=== PATIENT | male | born 1940 | race Caucasian/White ===

== ENCOUNTER → 2018-04-03 | Outpatient (CLI) | payer OTHER ==
[~2018-04-03] MED LIST: ACETAMINOPHEN325 M1 PO; AMITIZA 24 MCG24 MC1 PO; CRESTOR20 MG PO; DILTIAZEM 24HR180 MG PO; MELOXICAM7.5 MG PO; MICARDIS HCT 81 EAC1 PO; OMEPRAZOLE 20 M20 MG PO
== END ==
LOC: CAT 11:31
DX: I25.10 Atherosclerotic heart disease of native coronary artery without angina pectoris (principal); M47.814 Spondylosis without myelopathy or radiculopathy, thoracic region

== ENCOUNTER 2019-03-05 09:29 | Outpatient (CLI) | payer OTHER ==
[~2019-03-05] VITALS: Ht 187 cm; Wt 103.9 kg
[2019-03-05 10:36] LABS: CALCIUM 10.1 mg/dL (8.5-10.1); CREATININE 1.5 mg/dL (0.7-1.3); POTASSIUM 4.1 mmol/L (3.5-5.1)
[2019-03-05 10:44] VITALS: BP 150/50
[2019-03-05] MEDS ORDERED: ALLOPURINOL 10100 M3 PO (11:11)
[2019-03-05] MEDS ORDERED: ASA81BEC PO (11:12)
[2019-03-05] MEDS ORDERED: MITIGARE0.6 MG PO (11:12)
[2019-03-05] MEDS ORDERED: AMITIZA8 MCG PO (11:13)
[2019-03-05] MEDS ORDERED: MAG-OXIDE200 MG PO (11:15)
[2019-03-05] MEDS ORDERED: CENTRUM ADULTS1 EACH PO (11:15)
[2019-03-05] MEDS ORDERED: BYSTOLIC10 MG PO (11:16)
[2019-03-05] MEDS ORDERED: LIVALO2 MG PO (11:17)
[2019-03-05] MEDS ORDERED: PRADAXA150 MG PO (11:18)
[2019-03-05] MEDS ORDERED: DEMADEX20 MG PO (11:18)
[2019-03-05 12:21] LABS: HEMATOCRIT 46.4 % (42.0-52.0); HEMOGLOBIN 15.4 gm/dL (14.0-18.0); MCH 30.3 pg (26.0-34.0); MCHC 33.3 g/dL (28.0-37.0); MCV 91.2 fL (80.0-100.0); RBC 5.08 mil/uL (4.50-6.00); RDW 15.1 % (10.5-14.5); WBC 5.8 thou/uL (4.0-11.0)
--- NOTE | 2019-03-05 17:02 | CATHLAB ---
[facility] [employer] [address] INVASIVE PROCEDURE REPORT Name: KELLY ABDUL Room #: 204-P [facility].R.#: [id number] Admission: 03/05/19 Attend Phys: Tolu Pike, Discharge: Date of : 42 Report #: [id number] THIS REPORT FOR: //name// APPROVED REPORT Study performed: 03/05/2019 10:19:10 Patient Details Patient Status: Out-Patient Room #: The patient is a 78 year-old male Event Personnel Tolu Pike Marine Photographer, Dexter Camarena RN, Maegan Conner RTR Donna Briscoe David Monitor Procedures Performed Right and Left Heart Cath w/or w/o Coronarie [id number] [facility] Renal Bilateral Peripheral Angiography [id number] CVRENALBIL Indication Chest pain Procedure Narrative The Right Groin^ was infiltrated with 1% Lidocaine subcutaneous anesthesia. A PINNACLE 6FR Sheath #[id number] sheath was inserted into the RFA^. Coronary angiography was performed using coronary diagnostic catheters. The right coronary system was accessed and visualized with a JR4 catheter. The left coronary system was accessed and visualized with a JL4 catheter. The left ventricle was accessed and visualized with a PIGTAIL catheter. Left ventriculogram was performed in 30 degree projection. Closure device was deployed with a 6 Fr MYNXGRIP 6/7F #[id number]. The patient tolerated the procedure well and there were no complications associated with the procedure. There was no hematoma. Intraoperative Conscious Sedation Sedation start time: 13.05 Case end Time: 13.48 Fentanyl 50 mcg Versed 2 mg Fluoro Time: 10.52 minutes Dose: DAP 54367.00 cGycm2 1317 mGy Contrast Type and Amount: Visipaque 100 ml Hemodynamics [facility] [address] [place] [address] INVASIVE PROCEDURE REPORT Name: KELLY ABDUL Room #: 204-P [facility]..#: [id number] Admission: 03/05/19 Attend Phys: Tolu Pike, Discharge: Date of : 42 Report #: [id number] The right atrial mean pressure is 20 mmHg. The right ventricular pressure is 77/6 mmHg. The pulmonary artery pressure is 77/33 mmHg with a mean of 49 mmHg. The mean pulmonary capillary wedge pressure is 50 mmHg. The aortic pressure is 172/96 mmHg with a mean of 122 mmHg. The left ventricular pressure is 164/14 mmHg with a mean of mmHg. The left ventricular end diastolic pressure is 29 mmHg. The cardiac output using thermo method is 4.00 L/min. Conclusion #1 successful right heart catheterization with cardiac output by thermodilution. See above hemodynamics. #2 normal left ventricular size and systolic function EF 60% moderate mitral regurgitation noted #3 long left main giving rise to a dominant circumflex and LAD. F main is free of disease #4 LAD is moderately calcified proximal and tortuous with moderate disease no high-grade occlusion is noted this extends around the apex. #5 circumflex OM is dominant vessel. The proximal circumflex is patent first OM branch mildly diseased at that bifurcation there is a 70% eccentric lesion in the circumflex as it extends distally will follow this well preserved dominant distal vessel. 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 It is moderately disease and supplying little left ventricular myocardium. #7 selective injection of right renal artery exhibits a 50% ostial lesion will follow slight gradient is noted on pullback #8 left renal artery is mildly disease high bifurcating system no occlusive disease Indications and plan: Continue aggressive risk factor modification patient is being given IV diuretic in the catheter lab will be admitted to CCU for observation and aggressive diuresis. Significant elevation pulmonary pressures. Predominately on an due to volume overload. 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 <ELECTRONICALLY SIGNED> By: Tolu Pike MD, FACC 03/05/191701 01 01 Tolu Pike MD, FACC /INF
[2019-03-05 18:00] VITALS: BP 145/70
--- NOTE | 2019-03-05 18:42 | NUR ---
PT TO FLOOR FROM INTERIOR PANELER, RIGHT GROIN CHECKED, CDI, NO HEMATOMA UPON PALPATION, PT ANSWERED NO IF ASKED IN PAIN, WILL MONITOR.
[2019-03-05 20:23] VITALS: BP 122/74
[2019-03-06 04:53] VITALS: BP 114/74
--- NOTE | 2019-03-06 05:10 | NUR ---
ASSUMED PT CARE AT 1900. PT IS ALERT AND ORIENTED WITH NO SIGN OF DISTRESS NOTED. DENIES ANY PAIN. RIGHT FROIN SITE IS INTACT. NO HEMATOMA OR BRUSING. ASSESSMENT COMPLETED AND DOCUMENTED. SCHEDULED MEDS ADMINISTERED TO PT. PT IS STABLE THROUGHOUT THE NIGHT. CONTINUE TO MONITOR PATIENTS.
[2019-03-06 05:17] LABS: CALCIUM 9.9 mg/dL (8.5-10.1); CREATININE 1.4 mg/dL (0.7-1.3); POTASSIUM 3.9 mmol/L (3.5-5.1)
[2019-03-06] MEDS ORDERED: POTASSIUM20 PO (07:27)
[2019-03-06] MEDS ORDERED: DEMADEX20 MG PO (07:27)
[2019-03-06 07:53] VITALS: BP 126/81
--- NOTE | 2019-03-06 09:20 | EKG ---
[place] [address] [employer] [facility] [place] [address] ELECTROCARDIOGRAM REPORT Name: KELLY ABDUL Room #: 204-[facility]..#: [id number] Admission: 03/05/19 Attend Phys: Tolu Pike MD, Discharge: Date of : 42 Report #: [id number] THIS REPORT FOR: //name// [facility] Test Date: 2019-03-06 Test Time: 08:05:31 Pat Name: KELLY ABDUL Department: Room: 204 Gender: M Acid Patroller: ALISSA : 1940 Requested By: Leyla Wahl Order Number: [id number] MD: Jasiel Green Measurements Intervals [place] Rate: 72 P: [place]: QRS: -23 QRSD: 108 T: -7 QT: 417 QTc: 457 Interpretive Statements Atrial fibrillation Abnormal R-wave progression, late transition Inferior infarct, old Compared to ECG 06/12/2011 07:26:14 Inferior Q waves are more prominent Electronically Signed On 03-06-2019 9:20:08 NUTRITION HELPER by Jasiel Green [email or web address] <ELECTRONICALLY SIGNED> By: Jasiel Green MD, [facility] 03/06/19919 4 4 Jasiel Green MD, [facility] /EPI
[2019-03-06 10:55] VITALS: BP 126/81
--- NOTE | 2019-03-06 11:18 | NUR ---
AAOX4. DR YO HERE, DISCHARGING PATIENT. AFIB PER TELE, ASYMPTOMATIC. DISCHARGE INSTRUCTIONS GIVEN. WILL CONTINUE TO FOLLOW CLOSELY.
== END 2019-03-06 11:15 | disposition home or self-care (01) ==
LOC: CATH 09:29 → 2N 17:00 → CATH 03-06 11:15
PROVIDERS: Internal Medicine Cardiovascular Disease; Nurse Practitioner Adult Health
DX: R07.9 Chest pain, unspecified (principal); I25.10 Atherosclerotic heart disease of native coronary artery without angina pectoris; I70.1 Atherosclerosis of renal artery; I11.0 Hypertensive heart disease with heart failure; I50.9 Heart failure, unspecified; E78.5 Hyperlipidemia, unspecified; K21.9 Gastro-esophageal reflux disease without esophagitis; G47.33 Obstructive sleep apnea (adult) (pediatric); I48.91 Unspecified atrial fibrillation; Z98.890 Other specified postprocedural states; Z79.899 Other long term (current) drug therapy; Z79.01 Long term (current) use of anticoagulants; Z88.8 Allergy status to other drugs, medicaments and biological substances
CPT/HCPCS: 10081

== ENCOUNTER → 2019-03-27 | Outpatient (CLI) | payer OTHER ==
[~2019-03-27] MED LIST changes: +ALLOPURINOL 10100 M3 PO; +AMITIZA8 MCG PO; +ASA81BEC PO; +BYSTOLIC10 MG PO; +CENTRUM ADULTS1 EACH PO; +DEMADEX20 MG PO; +LIVALO2 MG PO; +MAG-OXIDE200 MG PO; +MITIGARE0.6 MG PO; +POTASSIUM20 PO; +PRADAXA150 MG PO
== END ==
LOC: SJCVC 13:12
DX: I48.21 Permanent atrial fibrillation (principal); I10 Essential (primary) hypertension; I25.10 Atherosclerotic heart disease of native coronary artery without angina pectoris; E78.00 Pure hypercholesterolemia, unspecified; I65.23 Occlusion and stenosis of bilateral carotid arteries; G47.33 Obstructive sleep apnea (adult) (pediatric); Z79.01 Long term (current) use of anticoagulants; Z98.890 Other specified postprocedural states; Z79.899 Other long term (current) drug therapy; Z79.82 Long term (current) use of aspirin

== ENCOUNTER → 2019-09-27 | Outpatient (CLI) | payer OTHER ==
[~2019-09-27] MED LIST changes: +DULCOLAX10 MG RECTAL; +KRISTALOSE20 GM PO
== END ==
LOC: SJCVCIMAG 08:55
PROVIDERS: ATTEND Internal Medicine Cardiovascular Disease
DX: I08.3 Combined rheumatic disorders of mitral, aortic and tricuspid valves (principal); I27.20 Pulmonary hypertension, unspecified; I48.0 Paroxysmal atrial fibrillation; I45.10 Unspecified right bundle-branch block; I11.9 Hypertensive heart disease without heart failure; R94.31 Abnormal electrocardiogram [ECG] [EKG]; I25.10 Atherosclerotic heart disease of native coronary artery without angina pectoris; E78.00 Pure hypercholesterolemia, unspecified; D68.59 Other primary thrombophilia; I73.9 Peripheral vascular disease, unspecified; G62.9 Polyneuropathy, unspecified; M10.9 Gout, unspecified; E78.5 Hyperlipidemia, unspecified; Z79.01 Long term (current) use of anticoagulants; Z79.899 Other long term (current) drug therapy; Z79.82 Long term (current) use of aspirin; Z87.891 Personal history of nicotine dependence

== ENCOUNTER 2019-10-10 00:11 | Emergency (ER) | payer OTHER ==
[~2019-10-10] VITALS: Ht 188 cm; Wt 106.6 kg
[~2019-10-10 00:11] MED LIST changes: -DULCOLAX10 MG RECTAL; -KRISTALOSE20 GM PO
[2019-10-10] MEDS ORDERED: BYSTOLIC10 MG PO (00:42)
[2019-10-10 02:18] LABS: ABSOLUTE NEUTROPHILS 7.2 thou/uL (1.4-8.2); BASOPHILS 0.3 % (0.0-2.0); EOSINOPHILS 0.5 % (0.0-3.0); HEMATOCRIT 48.9 % (42.0-52.0); HEMOGLOBIN 16.5 gm/dL (14.0-18.0); LYMPHOCYTES 9.4 % (24.0-44.0); MCH 30.8 pg (26.0-34.0); MCHC 33.7 g/dL (28.0-37.0); MCV 91.3 fL (80.0-100.0); MONOCYTES 10.3 % (1.0-8.0); PLATELET COUNT 189 thou/uL (150-400); POLYS 79.5 % (36.0-66.0); RBC 5.36 mil/uL (4.50-6.00); RDW 16.1 % (10.5-14.5); WBC 9.1 thou/uL (4.0-11.0)
[2019-10-10 02:28] LABS: CREATININE 1.7 mg/dL (0.7-1.3); POTASSIUM 4.2 mmol/L (3.5-5.1)
[2019-10-10 02:32] LABS: ALBUMIN 3.4 g/dL (3.4-5.0); DIRECT BILIRUBIN 0.3 mg/dL (<0.1-0.2); TOTAL BILIRUBIN 1.3 mg/dL (0.2-1.0); TOTAL PROTEIN 7.6 g/dL (6.4-8.2)
[2019-10-10 02:56] LABS: URINE BILIRUBIN NEGATIVE (Negative); URINE BLOOD TRACE (Negative); URINE CLARITY CLEAR; URINE COLOR YELLOW; URINE GLUCOSE-RANDOM* NEGATIVE (Negative); URINE KETONES NEGATIVE (Negative); URINE LEUKOCYTES-REFLEX NEGATIVE (Negative); URINE NITRITE-REFLEX NEGATIVE (Negative); URINE PROTEIN (DIPSTICK) 2+ (Negative)
[2019-10-10] MEDS ORDERED: DULCOLAX10 MG RECTAL (03:45)
[2019-10-10] MEDS ORDERED: KRISTALOSE20 GM PO (03:45)
[2019-10-10 03:54] LABS: BACTERIA-REFLEX 1-9 Few /HPF (None Seen); CASTS None Seen /LPF (None Seen); CRYSTALS None Seen /LPF (None Seen); MUCUS 0-3 Light strn/LPF (None Seen); SQUAMOUS 0-3 Few /LPF (0-3); URINE RBC 0-2 Rare /HPF (0-2); URINE WBC-REFLEX 0-5 Rare /HPF (0-5)
[2019-10-10 04:15] VITALS: BP 128/91
== END 2019-10-10 04:16 | disposition home or self-care (01) ==
LOC: ER 00:11
PROVIDERS: Emergency Medicine
DX: K59.00 Constipation, unspecified (principal); I10 Essential (primary) hypertension; I48.91 Unspecified atrial fibrillation; Z79.82 Long term (current) use of aspirin; Z79.899 Other long term (current) drug therapy; Z87.891 Personal history of nicotine dependence; Z88.8 Allergy status to other drugs, medicaments and biological substances

== ENCOUNTER → 2020-03-06 | Outpatient (CLI) | payer OTHER ==
[~2020-03-06] MED LIST changes: +DULCOLAX10 MG RECTAL; +KRISTALOSE20 GM PO
== END ==
LOC: SJCVC 13:56
PROVIDERS: ATTEND Internal Medicine Cardiovascular Disease
DX: R94.31 Abnormal electrocardiogram [ECG] [EKG] (principal); I48.91 Unspecified atrial fibrillation; I25.10 Atherosclerotic heart disease of native coronary artery without angina pectoris; I10 Essential (primary) hypertension; E78.00 Pure hypercholesterolemia, unspecified; I77.9 Disorder of arteries and arterioles, unspecified; I38 Endocarditis, valve unspecified; D68.59 Other primary thrombophilia; R97.20 Elevated prostate specific antigen [PSA]; K21.9 Gastro-esophageal reflux disease without esophagitis; G47.34 Idiopathic sleep related nonobstructive alveolar hypoventilation; Z79.01 Long term (current) use of anticoagulants; Z79.82 Long term (current) use of aspirin; Z79.899 Other long term (current) drug therapy; Z88.1 Allergy status to other antibiotic agents

== ENCOUNTER → 2020-06-23 | Outpatient (CLI) | payer OTHER | LOC: SJCVC 11:50 | PROVIDERS: ATTEND Internal Medicine Cardiovascular Disease | DX: R94.31 Abnormal electrocardiogram [ECG] [EKG] (principal); I25.10 Atherosclerotic heart disease of native coronary artery without angina pectoris; I10 Essential (primary) hypertension; I34.0 Nonrheumatic mitral (valve) insufficiency; I65.23 Occlusion and stenosis of bilateral carotid arteries; I48.21 Permanent atrial fibrillation; E78.00 Pure hypercholesterolemia, unspecified; D68.59 Other primary thrombophilia; Z79.82 Long term (current) use of aspirin; Z79.899 Other long term (current) drug therapy; Z87.891 Personal history of nicotine dependence; Z72.89 Other problems related to lifestyle ==

== ENCOUNTER → 2020-09-15 | Outpatient (CLI) | payer OTHER | LOC: SJCVCIMAG 12:38 | PROVIDERS: ATTEND Internal Medicine Cardiovascular Disease | DX: I08.1 Rheumatic disorders of both mitral and tricuspid valves (principal); I70.203 Unspecified atherosclerosis of native arteries of extremities, bilateral legs; I25.10 Atherosclerotic heart disease of native coronary artery without angina pectoris; I48.91 Unspecified atrial fibrillation; I10 Essential (primary) hypertension; L81.9 Disorder of pigmentation, unspecified; M79.604 Pain in right leg; M79.605 Pain in left leg; Z72.0 Tobacco use ==

== ENCOUNTER → 2021-02-24 | Outpatient (CLI) | payer OTHER | LOC: SJCVC 12:47 | PROVIDERS: ATTEND Internal Medicine Cardiovascular Disease | DX: R94.31 Abnormal electrocardiogram [ECG] [EKG] (principal); I25.10 Atherosclerotic heart disease of native coronary artery without angina pectoris; C61 Malignant neoplasm of prostate; I10 Essential (primary) hypertension; E78.2 Mixed hyperlipidemia; G47.33 Obstructive sleep apnea (adult) (pediatric); I65.23 Occlusion and stenosis of bilateral carotid arteries; D68.59 Other primary thrombophilia; I48.91 Unspecified atrial fibrillation; I38 Endocarditis, valve unspecified; I77.9 Disorder of arteries and arterioles, unspecified; K21.9 Gastro-esophageal reflux disease without esophagitis; Z99.89 Dependence on other enabling machines and devices; Z87.891 Personal history of nicotine dependence; Z72.89 Other problems related to lifestyle; Z79.82 Long term (current) use of aspirin; Z79.899 Other long term (current) drug therapy; Z88.8 Allergy status to other drugs, medicaments and biological substances ==

== ENCOUNTER 2021-04-24 06:32 | Day surgery (SDC) | payer OTHER ==
[~2021-04-24] VITALS: Ht 188 cm; Wt 104.3 kg
[~2021-04-24 06:32] MED LIST changes: +FISH OIL 1,0001 EAC9 PO; +POTASSIUM CHLO20 ME2 PO; +PROTONIX40 M2 PO; +TAMSULOSIN HCL0.4 MG PO; +TORSEMIDE20 MG PO
--- NOTE | 2021-04-24 07:51 | EKG ---
[place] [address] [facility] [place] [address] ELECTROCARDIOGRAM REPORT Name: KELLY ABDUL Room #: [facility]#: [id number] Admission: 04/24/21 Attend Phys: Martha Wade MD, Discharge: Date of : 42 Report #: [id number] [facility] Test Date: 2021-04-24 Test Time: 07:29:56 Pat Name: KELYL ABDUL Department: Room: Gender: M Car Starter: : 1940 Requested By: Brandon Arvizu Order Number: [id number] : Edward Hernandes Measurements Intervals [place] Rate: 81 P: [place]: QRS: -43 QRSD: 105 T: 19 QT: 408 QTc: 474 Interpretive Statements Atrial fibrillation Left axis deviation Borderline low voltage, extremity leads Abnormal R-wave progression, late transition Compared to ECG 03/06/2019 08:05:31 Left-axis deviation now present Myocardial infarct finding no longer present Electronically Signed On 04-24-2021 7:50:46 DRAFTER CARTOGRAPHIC by Edward Hernandes [email or web address] <ELECTRONICALLY SIGNED> By: Edward Hernandes MD, [facility] 04/24/21 0750 0729 8 Edward Hernandes MD, [facility] /EPI
[2021-04-24 07:54] LABS: HEMATOCRIT 45.2 % (42.0-52.0); HEMOGLOBIN 15.3 gm/dL (14.0-18.0)
[2021-04-24 08:04] LABS: CALCIUM 9.2 mg/dL (8.5-10.1); CREATININE 1.6 mg/dL (0.7-1.3)
[2021-04-24 08:07] VITALS: BP 128/64
[2021-04-24] MEDS ORDERED: OXYCODONE HCL 55 MG PO (11:04)
[2021-04-24 15:53] VITALS: BP 139/80
[2021-04-24 20:40] VITALS: BP 136/76
[2021-04-25 05:31] LABS: CALCIUM 8.1 mg/dL (8.5-10.1); CREATININE 1.9 mg/dL (0.7-1.3); POTASSIUM 4.8 mmol/L (3.5-5.1)
[2021-04-25 05:47] LABS: HEMATOCRIT 43.7 % (42.0-52.0); HEMOGLOBIN 14.8 gm/dL (14.0-18.0); MCH 31.5 pg (26.0-34.0); MCHC 33.8 g/dL (28.0-37.0); RBC 4.7 mil/uL (4.50-6.00); RDW 15.8 % (10.5-14.5); WBC 10.9 thou/uL (4.0-11.0)
[2021-04-25 08:10] VITALS: BP 124/69
--- NOTE | 2021-04-25 08:43 | NUR ---
RECEIVED CARE OF THIS PATIENT AT 1900. PATIENT ALERT AND ORIENTED X4. UP AD BECCA. HAS 3 SMALL INCISONS ON THE L SIDE OF HIS ABD WITH DERMABOND. ONE INCISION ON LOWER MID ABD WITH DRESSING OVER IT. IV PATENT IN RAC WITH FLUIDS INFUSING. C/O MILD PAIN BUT REFUSED ANYTHING FOR IT. SLEPT LITTLE THIS SHIFT.
--- NOTE | 2021-04-25 09:49 | O ---
[facility] [address] OPERATIVE REPORT Name: KELLY ABDUL Room #: 442-P [facility]#: [id number] Admission: 04/24/21 Attend Phys: Martha Wade MD, Discharge: Date of : 42 Report #: [id number] THIS REPORT FOR: cc: Jesús Palma MD, Neal A. MD Soliman,Martha Patino MD FACS ~ DATE OF SERVICE: 04/24/2021 PREOPERATIVE DIAGNOSIS: Incarcerated umbilical hernia. POSTOPERATIVE DIAGNOSIS: Incarcerated umbilical hernia. PROCEDURE PERFORMED: Laparoscopic repair of an incarcerated umbilical hernia with mesh. SURGEON: Martha Wade MD INSPECTION CLERK: Medical student. ANESTHESIA: General endotracheal anesthesia. ESTIMATED BLOOD LOSS: Minimal (less than 5 mL). COMPLICATIONS: None appreciated. SPECIMENS: None. INDICATIONS: The patient is a 80-year-old male with a longstanding history of an umbilical hernia that has progressively enlarged and become painful as of late. On exam, the patient had an obviously palpable umbilical hernia with what appeared to be incarcerated omentum as it was firm and slightly discolored. After thorough consultation with the patient and obtaining both primary care and cardiac clearance to proceed, indication was for the above-mentioned procedure today. DESCRIPTION OF PROCEDURE: After explaining the risks, benefits and alternatives of the procedure with the patient in detail in the preoperative holding area and obtaining consent, the patient was brought to the operating room and placed supine on the operating room table. After conducting a thorough timeout procedure, verifying correct patient and procedure, the patient was given general endotracheal anesthesia. Once adequate anesthesia was obtained, his SCDs were hooked up to the pneumatic compression device and he was given a preoperative dose of antibiotics in line with the SCIP protocol. The patient's abdomen was prepped and draped in standard surgical sterile fashion. A 5 mL of 0.5% Marcaine with epinephrine were used to anesthetize the skin in the left upper quadrant midclavicular line in subcostal location. A #15 bladed scalp[address] [address] OPERATIVE REPORT Name: KELLY ABDUL Room #: 442-P [facility]#: [id number] Admission: 04/24/21 Attend Phys: Martha Wade MD, Discharge: Date of : 42 Report #: [id number] was used to create a small skin seymour at this location. A 5 mm Visiport was placed over 0-degree, 5 mm laparoscope and was introduced through this incision site. Once intraabdominal placement was verified visually, the obturator for the trocar and laparoscope were both removed and the abdomen was insufflated to 15 mmHg using carbon dioxide gas. Laparoscope was changed to a 5 mm 30-degree laparoscope, which was reintroduced through this trocar. The entire abdomen was evaluated to ensure no injury upon entry. We immediately encountered incarcerated omentum contained within the umbilical hernia. The left lateral flank was devoid of adhesions and as such, I was able to place a 12 mm port lateral with the umbilicus in the anterior axillary line, and an additional 5 mm port in the left lower quadrant. Both additional ports were placed under direct vision after anesthetizing the skin at each location with 5 mL of 0.5% Marcaine with epinephrine. I created appropriately sized skin nicks using #15 bladed scalpel. Laparoscope was now removed, changed to the 12 mm port. I reduced the incarcerated omentum with gentle manual traction. I now utilized Harmonic scalpel, skeletonized the posterior aspect of the anterior abdominal wall, taking down all the tethered preperitoneal fat from the abdominal wall from superior to inferior. This allowed me to fully reduce all incarcerated contents from the umbilical defects. The defect itself measured 1.5 x 1.5 cm in dimension. I therefore selected a piece of Ventralight ST mesh on the ECHO positioning system measuring 11.4 cm in diameter that would give me at least 5 cm overlap outside of the umbilical hernia defect. This was rolled up and placed into the intraabdominal space. I now made a small stab incision overlying the umbilicus using #15 bladed scalpel and utilized #1 PDS suture on the Jean-Jorge suture passer device, placed 2 [id number] sutures around the umbilical defect. The insufflation pressure was reduced to 8 mmHg and each of the sutures were then sequentially tied down effectively performing a primary suture repair of the umbilical defect. I now used the Jean-Jorge suture passer device through the stab incision over the umbilicus and directed this through the center most portion of the 2 sutures, which allowed me to grasp the end eyelet of the balloon insufflation tubing for the ECHO scaffolding on the mesh, which was then pulled up through the abdominal wall, cut off and passed off the field. I then attached the syringe insufflator to the ECHO scaffolding and fully inflated it, tagging with a hemostat externally at the skin level, which held the entire mesh in close approximation with the posterior aspect of the anterior abdominal wall throughout. I now proceeded to circumferentially fix the mesh into place with the SecureStrap absorbable fixation device at 1 cm intervals around the periphery of the mesh as well as having placed numerous tacks throughout the innermost portion of the mesh as well. The balloon tubing was then cut at the skin level, which released the ECHO scaffolding and the scaffolding was then removed via the 12 mm port under direct vision with the laparoscope in the left upper quadrant trocar. Numerous tacks were then placed throughout the innermost portion of the mesh as well to hold the entire mesh in close approximation with the posterior aspect of the anterior abdominal wall and the preperitoneal flap was tethered back up to the [facility] [address] [address] OPERATIVE REPORT Name: KELLY ABDUL Room #: 442-P [facility]..#: [id number] Admission: 04/24/21 Attend Phys: Martha Wade MD, Discharge: Date of : 42 Report #: [id number] abdominal wall with the tacking device, ensuring no windows between the fat and the abdominal wall to prevent internal herniation. Final evaluation of the intraabdominal domain showed no further evidence of pathology. We had complete hemostasis. The laparoscope was placed back in the left upper quadrant trocar and I closed the 12 mm fascial incision under direct vision using 0 PDS suture on the Jean-Jorge suture passer device, which was tied down under direct vision to ensure I did not catch a loop of bowel or omentum in the suture repair. The abdomen was fully desufflated. All trocars were removed under direct vision. All skin incisions were closed using 4-0 Monocryl in standard subcuticular fashion and Dermabond glue was applied to the skin wounds. A tonsil ball was placed in the umbilicus covered with a Tegaderm to hopefully prevent postoperative seroma formation, completing the procedure. At the end of the procedure, all instrument, needle and sponge counts were correct. The patient tolerated the procedure without incident, was awakened in the operating room, and transitioned to the recovery room in stable condition with no apparent complications. <ELECTRONICALLY SIGNED> By: Martha Wade MD, FACS 04/25/21 0949 1005 1044 Martha Wade MD, FACS /nt
[2021-04-25 10:30] VITALS: BP 124/69
--- NOTE | 2021-04-25 11:27 | NUR ---
ASSUMED CARE OF PT AT 0700. VSS. NO RESPIRTORY DISTRESS. AOX4. UP WITH STANDBY ASSIST. PERIPHERAL IV D/C BEFORE DISCHARGE. EXPLAINED DISCHARGE INSTRUCTIONS TO PT, PX SENT TO PHARMACY. PT D/C AT 1100
== END 2021-04-25 15:58 | disposition home or self-care (01) ==
LOC: OR 06:32 → EDSTATUS 09:34 → OR 09:36 → 4S 12:15 → PRE 13:06 → OR 04-25 15:58
PROVIDERS: Anesthesiology; ATTEND Surgery
DX: K42.0 Umbilical hernia with obstruction, without gangrene (principal); I11.0 Hypertensive heart disease with heart failure; I50.9 Heart failure, unspecified; I48.91 Unspecified atrial fibrillation; G47.30 Sleep apnea, unspecified; F17.210 Nicotine dependence, cigarettes, uncomplicated; Z98.890 Other specified postprocedural states; Z79.899 Other long term (current) drug therapy; Z20.822 Contact with and (suspected) exposure to COVID-19; Z88.8 Allergy status to other drugs, medicaments and biological substances
CPT/HCPCS: 10102; 50010; 50101; 50386; 50555; 50980; 50984; 52205; 52265; 52266; 53307; 54022; 54118; 56462; 56525; 56526; 57092; 58574; 58911; 62110; 62900; 70005